=== PATIENT | male | born 1950 | race Caucasian/White ===

== ENCOUNTER 2020-06-11 10:38 | Inpatient (IN) | payer OTHER ==
[~2020-06-11] VITALS: Ht 180.3 cm; Wt 115.0 kg
[2020-06-11 10:41] VITALS: BP 121/65
[2020-06-11 10:55] LABS: URINE BILIRUBIN NEGATIVE (Negative); URINE BLOOD NEGATIVE (Negative); URINE CLARITY CLEAR; URINE COLOR YELLOW; URINE GLUCOSE-RANDOM* NEGATIVE (Negative); URINE KETONES NEGATIVE (Negative); URINE LEUKOCYTES-REFLEX TRACE (Negative); URINE NITRITE-REFLEX NEGATIVE (Negative); URINE PROTEIN (DIPSTICK) NEGATIVE (Negative); URINE UROBILINOGEN 0.2 E.U./dl (0.2-1.0)
--- NOTE | 2020-06-11 12:13 | EKG ---
[facility] [address] [address] ELECTROCARDIOGRAM REPORT Name: MARI PENN Room #: PRE M.R.#: [id number] Admission: Attend Phys: Discharge: Date of : 50 Report #: [id number] THIS REPORT FOR: cc: Parviz Ospina MD [facility] ~ THIS REPORT FOR: //name// 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 : 1950 Requested By: Ryan Nolan Order Number: [id number] MD: Parviz Ospina Measurements Intervals [place] Rate: 97 P: -15 DE: 151 QRS: 15 QRSD: 70 T: QT: 385 QTc: 489 Interpretive Statements Sinus rhythm Probable left atrial enlargement Low voltage, extremity and precordial leads Abnormal R-wave progression, early transition Minimal ST depression, anterior leads Borderline prolonged QT interval Lead(s) aVF were not used for morphology analysis No previous ECG available for comparison Electronically Signed On 06-11-2020 12:13:10 DEFENSE TRAVEL ADMINISTRATOR by Parviz Ospina [email or web address] <ELECTRONICALLY SIGNED> By: Parviz Ospina MD, FACC 06/11/20 1213 1118 1118 Parviz Ospina MD, FAC /EPI
[2020-06-11 13:26] LABS: HEMOGLOBIN 14.4 gm/dL (14.0-18.0); MCH 30.1 pg (26.0-34.0); MCHC 32.7 g/dL (28.0-37.0); MCV 92.1 fL (80.0-100.0); PLATELET COUNT 389 thou/uL (150-400); RBC 4.77 mil/uL (4.50-6.00); RDW 14.8 % (10.5-14.5); WBC 21.4 thou/uL (4.0-11.0)
[2020-06-11 13:36] LABS: CALCIUM 9.9 mg/dL (8.5-10.1); CREATININE 1.6 mg/dL (0.7-1.3); POTASSIUM 3.6 mmol/L (3.5-5.1)
[2020-06-11 13:41] LABS: ALBUMIN 3.8 g/dL (3.4-5.0); TOTAL BILIRUBIN 0.5 mg/dL (0.2-1.0); TOTAL PROTEIN 7.7 g/dL (6.4-8.2)
[2020-06-11 14:16] LABS: ABSOLUTE NEUTROPHILS 17.8 thou/uL (1.4-8.2); ANISOCYTOSIS 1+
[2020-06-11 14:17] LABS: POLYCHROMASIA OCCASIONAL
[2020-06-11 15:18] LABS: AMP/METHAMP Negative (Negative); BARBITURATES Negative (Negative); BENZODIAZEPINES Negative (Negative); COCAINE Negative (Negative); METHADONE Negative (Negative); OPIATES Negative (Negative); PCP Negative (Negative)
[2020-06-11] MEDS ORDERED: METFORMIN HCL500 MG PO (16:20)
[2020-06-11] MEDS ORDERED: METOLAZONE 5 MG5 MG PO (16:20)
[2020-06-11] MEDS ORDERED: ATORVASTATIN CA20 MG PO (16:20)
[2020-06-11] MEDS ORDERED: BACLOFEN20 MG PO (16:20)
[2020-06-11] MEDS ORDERED: FLONASE 0.05%50 MCG NARES (16:20)
[2020-06-11] MEDS ORDERED: DEMADEX20 MG PO (16:21)
[2020-06-11] MEDS ORDERED: K-DUR 20 MEQ T20 MEQ PO (16:21)
[2020-06-11] MEDS ORDERED: DUTASTERIDE0.5 MG PO (16:21)
[2020-06-11] MEDS ORDERED: TAMSULOSIN HCL0.4 MG PO (16:22)
[2020-06-11] MEDS ORDERED: ALLOPURINOL 10100 M1 PO (16:22)
[2020-06-11] MEDS ORDERED: SPIRONOLACTONE25 MG PO (16:22)
[2020-06-11] MEDS ORDERED: GABAPENTIN800 M1 PO (16:22)
[2020-06-11] MEDS ORDERED: TIZANIDINE HCL 22 M1 PO (16:23)
[2020-06-11] MEDS ORDERED: DULCOLAX STOOL100 M1 PO (16:23)
[2020-06-11] MEDS ORDERED: CLARITIN10 M3 PO (16:23)
[2020-06-11 16:49] LABS: BE(vivo) 1.4 mmol/L (-2 to +3); PCO2 VENOUS 41.1 mmHg (41.0-51.0); PO2 VENOUS 54.1 mmHg (35.0-45.0)
--- NOTE | 2020-06-11 17:45 | NUR ---
NOTIFIED TO PLACE A PICC FOR A PATIENT ADMITTING WITH SEPSIS. ORDER AND CONSENT NOTED. A #5F TRIPLE LUMEN POWER PICC WAS PLACED PER HOSPITAL POLICY AFTER A BEDSIDE TIMEOUT WAS COMPLETED. LINE WAS TRIMMED TO 42CM AND ADVANCED WITHOUT DIFFICULTY. A STAT CHEST XRAY WAS ORDERED FOR CONFIRMATION
--- NOTE | 2020-06-11 18:29 | NUR ---
CXR CONFIRMED PICC PLACEMENT, RELEASED FOR IMMEDIATE USE PER PROTOCOL TO ED STAFF
[2020-06-11 20:10] VITALS: BP 100/57
[2020-06-11 22:46] VITALS: BP 100/51
--- NOTE | 2020-06-11 23:00 | NUR ---
ASSUMED CARE FROM ED, PT ALERT ORIENTED X4 ,PT STATES HE IS UNABLE TO TURN, PT ASSISTED TO SIDE , PRESSURE WOUNDS NOTED ON BILATERAL BUTTOCKS, PICTURES TAKEN. PT DATA BASE AND ASSESSMENT COMPLETED. IV FLUIDS INFUSING WELL. CALL LIGHT IN REACH , FREQ ROUNDING FOR SAFETY.
[2020-06-11 23:12] VITALS: BP 100/51
[2020-06-11 23:53] LABS: CHOLESTEROL 170 mg/dL (<200); HDL CHOLESTEROL 53 mg/dL (>40); LDL CHOLESTEROL 99 mg/dL (<100); SERUM ASSESSMENT Clear; TC:HDL 3.2 Ratio (Not establshd); TRIGLYCERIDE 94 mg/dL (<150); VLDL 19 mg/dL (<40)
[2020-06-12 05:00] VITALS: BP 107/62
[2020-06-12 06:51] LABS: HEMATOCRIT 39.2 % (42.0-52.0); HEMOGLOBIN 12.9 gm/dL (14.0-18.0); MCH 30.7 pg (26.0-34.0); MCHC 33.1 g/dL (28.0-37.0); MCV 92.9 fL (80.0-100.0); RBC 4.22 mil/uL (4.50-6.00); RDW 15.1 % (10.5-14.5); WBC 22.7 thou/uL (4.0-11.0)
[2020-06-12 07:48] LABS: CALCIUM 8.6 mg/dL (8.5-10.1); CREATININE 1.3 mg/dL (0.7-1.3); POTASSIUM 3.5 mmol/L (3.5-5.1)
[2020-06-12 08:08] VITALS: BP 106/61
--- NOTE | 2020-06-12 10:13 | NUR ---
WOUND CARE CONSULT; ASSESSMENT LIMITED DUE TO COVID. BILATERAL BUTTOCKS WOUNDS ARE LIKELY RESOLVEING PRESSUE INJURY WITH SOME S/S OF FRICTION INJURY. THE AREAS ARE VIRTUALLY HEALED. NO S/S OF INFECTION. ALBUMIN IS 3.8 ON ADMISSION. RECOMMEDNATIONS; APPLY BARRIER CREAM TO BILATERAL BUTTOCKS BID
[2020-06-12 11:25] VITALS: BP 116/54
--- NOTE | 2020-06-12 14:54 | NUR ---
Spoke with daughter; Loraine Garza at [phone] who was concerned about Father's original placement on a Covid floor. We discussed his telemetry needs in original bed selection. And that there is an order to transfer to the CCU unit this afternoon. Daughter was relieved by this and did provide me via email with updated card information showing indeed her Father has Medicare and a [employer] [place] plan "G" as secondary. This has now been verified by the CBO and Registration. Daughter would like for her Father to go to [facility] for a discharge destination. Have put this notification in this documentation for discharge planning. Did call the daughter back and confirmed that patient will be moving to room 206 by end of shift. Also gave her the nurse's station phone of [phone] to call if needed. Notified Heavy Truck Technician and current Horse Riding Coach Or Instructor of above.
--- NOTE | 2020-06-12 16:16 | NUR ---
INITIAL ASSESSMENT: Received consult. SW reviewed chart and spoke with nursing and attending physician. Pt was admitted from home due to pneumonia/sepsis. Pt placed in Enhanced Isolation to r/o COVID-19. Pt's test is negative and pt will move to room 206. SW spoke with pt via phone. Introduced role of SW. Pt is alert/orientated x 4. Pt reports he lives at home. Prior to admission, pt was independent with ADLs. Pt states he has a walker and a scooter. Pt normally goes to [facility] for his care. Pt was interested in transferring to [facility] but is agreeable with remaining at [facility] for care. Pt's PCP is Dr. Robin Kaye at [facility]. Pt states he has used [facility] in the past Director of Case Mgmt spoke with pt's dtrLoraine. Pt's dtr interested in referral to [facility] at time of discharge. No weekend discharge planned. Pt's info updated with Medicare number. SW is following to assist as needed with discharge planning.
[2020-06-12 17:05] VITALS: BP 121/76
--- NOTE | 2020-06-12 18:54 | NUR ---
ASSUMED CARE TRANSFER FROM [facility]. PT ALERT X4, FROM ASSISTED LIVING. ON 2L NASAL CANNULA, PT STATES HE DOES NOT USE O2 AT HOME. MCQUEEN IN PLACE, WOUND TO BUTTOCKS WITH CARE COMPLETED BY TRE REDMAN RN. MOD ASSIST WITH TRANSFER, PRN MEDS GIVEN FOR LEG SPASMS. PT AND DTR WANTS TO BE TRANSFERED TO [facility]. DTR SPOKE WITH JEOVANNY LONDON REGARDING TRANSFER TO [facility] SEE NOTE. NO DC OVER THE WEEKEND.
[2020-06-12 20:30] VITALS: BP 129/79
[2020-06-13] VITALS: BP 100/64
[2020-06-13 04:06] LABS: GLYCOHEMOGLOBIN (HGB A1C) 6.9 % (4.8-5.6)
[2020-06-13 05:30] VITALS: BP 113/73
--- NOTE | 2020-06-13 05:42 | NUR ---
Assumed pt care at the change of shift, pt is awake, alert and oriented, sr on the monitor, c/o left leg pain, inpatient pharmacist notified, resumed gabapentin, meds given as per mar with relief, assessments as charted, inpatient pharmacist notified about the daughters need for pt to transfer to , no beds available at as per inpatient pharmacist, pt stable overnight, titrated o2 to 1L, O2sats stable, slept well, no acute distress noted, will pass on report
[2020-06-13 09:34] LABS: BASOPHILS 0.7 % (0.0-2.0); EOSINOPHILS 3.2 % (0.0-3.0); LYMPHOCYTES 17.6 % (24.0-44.0); MCH 30.8 pg (26.0-34.0); MCHC 32.5 g/dL (28.0-37.0); MONOCYTES 10.1 % (1.0-8.0); PLATELET COUNT 286 thou/uL (150-400); POLYS 68.4 % (36.0-66.0); RBC 3.58 mil/uL (4.50-6.00); RDW 15.3 % (10.5-14.5); WBC 10.3 thou/uL (4.0-11.0)
--- NOTE | 2020-06-13 17:58 | NUR ---
ASSUMED CARE OF PT AT SHIFT CHANGE. ASSESSMENTS CHARTED. MEDS GIVEN PER SEP. PT A&OX4, NO C/O SOA. ON 1L NC. DAUGHTER AT BEDSIDE MOST OF SHIFT. TRANFERRED TO [facility] ON THE PLA PER FAMILY REQUEST VIA EMS. MCQUEEN AND PICC REMAINED IN PLACE PER TRANSFER TEAM.
== END 2020-06-13 18:09 | disposition short-term general hospital (02) | DRG 871 ==
LOC: ER 10:38 → 2N 21:04 → EROBS 21:04 → 3W 23:39 → 2N 06-12 15:49
PROVIDERS: Emergency Medicine; Nurse Practitioner Family; ADMIT Hospitalist; ATTEND Hospitalist
PROC: 02H633Z Insertion of Infusion Device into Right Atrium, Percutaneous Approach (ICD-10-PCS; principal; 2020-06-11)
DX: A41.9 Sepsis, unspecified organism (principal); J18.9 Pneumonia, unspecified organism; K59.2 Neurogenic bowel, not elsewhere classified; N17.9 Acute kidney failure, unspecified; I69.354 Hemiplegia and hemiparesis following cerebral infarction affecting left non-dominant side; I13.0 Hypertensive heart and chronic kidney disease with heart failure and stage 1 through stage 4 chronic kidney disease, or unspecified chronic kidney disease; I50.9 Heart failure, unspecified; E78.5 Hyperlipidemia, unspecified; M10.9 Gout, unspecified; N40.0 Benign prostatic hyperplasia without lower urinary tract symptoms; E11.42 Type 2 diabetes mellitus with diabetic polyneuropathy; G89.29 Other chronic pain; E11.22 Type 2 diabetes mellitus with diabetic chronic kidney disease; G47.33 Obstructive sleep apnea (adult) (pediatric); M48.00 Spinal stenosis, site unspecified; M54.9 Dorsalgia, unspecified; Z20.828 Contact with and (suspected) exposure to other viral communicable diseases; N18.9 Chronic kidney disease, unspecified; Y95 Nosocomial condition; R53.81 Other malaise; M54.2 Cervicalgia; W01.198A Fall on same level from slipping, tripping and stumbling with subsequent striking against other object, initial encounter; Z99.3 Dependence on wheelchair; Z88.8 Allergy status to other drugs, medicaments and biological substances; Z91.041 Radiographic dye allergy status; Z91.013 Allergy to seafood; Z79.899 Other long term (current) drug therapy; Y92.89 Other specified places as the place of occurrence of the external cause; Y93.89 Activity, other specified; Y99.8 Other external cause status
CPT/HCPCS: 10081; 10879; 27000